=== PATIENT | male | born 1970 | race Hispanic/Latino ===

== ENCOUNTER → 2023-03-15 | Day surgery (SDC) | payer BC, OTHER ==
[~2023-03-15] MED LIST: AMLODIPINE BESY10 MG PO; LACTATED RINGER'S 1,000 ML ONE; LIDOCAINE HCL 2% LOCAL INJ 5 ML SDV VIAL INJ ONE; LOSARTAN POTAS100 MG PO; PROPOFOL IV EMULSION 10 MG/ML 20 ML VIAL ONE; PROPOFOL IV EMULSION 50 ML IV ONE
[2023-03-15 07:42] VITALS: TEMP 97.1
[2023-03-15 07:55] VITALS: BP 115/60; PULSE 50; RESP 16; O2SAT 98
== END | disposition home or self-care (01) ==
LOC: OR 05:39
PROVIDERS: ATTEND Internal Medicine Gastroenterology
DX: Z09 Encounter for follow-up examination after completed treatment for conditions other than malignant neoplasm (principal); D12.2 Benign neoplasm of ascending colon; I10 Essential (primary) hypertension; E78.5 Hyperlipidemia, unspecified; Z01.810 Encounter for preprocedural cardiovascular examination; Z79.899 Other long term (current) drug therapy
CPT/HCPCS: 45385; 88305; 93005; J2001; J2704 ×2; J7121